=== PATIENT | female | born 1975 | race Caucasian/White ===

== ENCOUNTER 2020-01-30 14:09 | Emergency (ER) | payer MEDICAID ==
[~2020-01-30] VITALS: Ht 165.1 cm; Wt 73.0 kg
[2020-01-30] MEDS ORDERED: MAGNESIUM/ALUMINUM HYDROXIDE/SIMETHICONE 30ML UDC PO ONE (14:45)
[2020-01-30] MEDS ORDERED: VISCOUS LIDOCAINE 2% 15 ML UDC PO ONE (14:45)
[2020-01-30] MEDS ORDERED: KETOROLAC 30MG/ML VIAL IV ONE (15:00)
[2020-01-30 15:53] LABS: BASOPHILS % 0.9 % (0.0-2.0); EOSINOPHILS % 1.6 % (0.0-5.0); HEMATOCRIT. 39.1 % (36.0-48.0); HEMOGLOBIN. 12.7 g/dL (12.0-16.0); LYMPHOCYTES % 41.1 % (20.0-50.0); MEAN CORPUSCULAR HEMOGLOBIN 29.5 pg (28.0-32.0); MEAN CORPUSCULAR VOLUME 90.7 fL (81.0-99.0); MEAN PLATELET VOLUME 10.1 fl (7.4-10.4); MONOCYTES % 5.4 % (2.0-8.0); PLATELET 303 x1000/uL (130-400); RED BLOOD CELL COUNT 4.31 mill/uL (4.2-5.4); RED CELL DISTRIBUTION WIDTH 14.4 % (11.6-14.6)
[2020-01-30 15:54] LABS: CHLORIDE 108 mEq/L (98-107)
[2020-01-30 17:57] VITALS: BP 116/76
== END 2020-01-30 18:00 | disposition home or self-care (01) ==
LOC: ER 14:26
DX: M94.0 Chondrocostal junction syndrome [Tietze] (principal); E11.9 Type 2 diabetes mellitus without complications
CPT/HCPCS: 36415; 71045; 80053; 83880; 84484; 85025; 93005; 96374; 99285; J1885

== ENCOUNTER 2021-02-28 19:29 | Emergency (ER) | payer MEDICAID ==
[~2021-02-28] VITALS: Ht 170.2 cm; Wt 92.0 kg
[2021-02-28] MEDS ORDERED: IBUPROFEN 600MG TABLET PO ONE (23:15)
[2021-03-01] MEDS ORDERED: SULF1TAB48 MT (00:54)
[2021-03-01] MEDS ORDERED: IBUP-2028 MT (00:54)
[2021-03-01] MEDS ORDERED: CEPH500C2 MT (00:54)
[2021-03-01 02:50] VITALS: BP 135/67
== END 2021-03-01 02:53 | disposition home or self-care (01) ==
LOC: ER 19:29
DX: M79.604 Pain in right leg (principal); L03.115 Cellulitis of right lower limb; J45.909 Unspecified asthma, uncomplicated; E11.9 Type 2 diabetes mellitus without complications; Z98.890 Other specified postprocedural states; Z98.51 Tubal ligation status
CPT/HCPCS: 73502; 73610; 81025; 82962; 93970; 99284